=== PATIENT | male | born 1945 | race Caucasian/White ===

== ENCOUNTER → 2016-10-08 | Outpatient (CLI) | payer MEDICARE ==
--- NOTE | 2016-10-09 23:00 | SLEEPCENT ---
DATE OF PROCEDURE: 10/08/2016 REFERRING PHYSICIAN: Melinda Prasad Nocturnal polysomnography was performed due to concern for the obstructive sleep apnea syndrome. 8 hours and 4 minutes of data were reviewed. There were 325 minutes of sleep identified. Sleep latency was prolonged at 50 minutes. Rapid eye movement (REM) sleep was short at 85 minutes. Sleep architecture showed fragmentation. The progression was intact. Overall sleep efficiency 68%. The patient's EKG showed a sinus rhythm with an average heart rate of 58 beats per minute. EEG showed normal waveforms for awake and sleep. There were 197 respiratory events identified of 10 seconds in duration or greater for an apnea/hypopnea index of 36.4. The events were primarily obstructive, not exclusive to sleep stage nor body position. Arousals from respiratory events occurred 20.7 times per hour. Remaining measures of sleep physiology were normal. IMPRESSION: Severe obstructive sleep apnea syndrome (G47.33). Apnea/hypopnea index 36.4. RECOMMENDATION: The patient should be encouraged to return to the sleep service center for pressure therapy. In the interim alcohol and sedative avoidance should be practiced and caution exercised during the operation of motor vehicles.
== END ==
LOC: M SLEEP 19:38
PROVIDERS: ATTEND Nurse Practitioner Adult Health
DX: G47.33 Obstructive sleep apnea (adult) (pediatric) (principal)

== ENCOUNTER → 2016-11-03 | Outpatient (CLI) | payer MEDICARE ==
--- NOTE | 2016-11-04 12:06 | SLEEPCENT ---
DATE OF PROCEDURE: 11/03/2016 ORDERED BY: ARANZA Russell Nocturnal polysomnography was performed for the titration of pressure therapy in this patient with severe obstructive sleep apnea syndrome. Apnea hypopnea index of 36. For testing, the patient was fit with a ResMed AirFit F20 full face mask of large, 4 cm of water pressure were applied to the circuit and the lights were extinguished. 6 hours and 51 minutes of data were reviewed. There were 314 minutes of sleep identified. Sleep latency was prolonged at 33 minutes. Rapid eye movement (REM) latency was normal at 110 minutes. Sleep architecture was fair. There was some persistence of fragmentation but 3 REM periods were appreciated. Overall sleep efficiency was 77.4%. The patient's EKG showed a sinus rhythm with an average heart rate of 62 beats per minute. EEG showed reasonably normal waveforms for awake and sleep stages. Respiratory events were found best palliated with CPAP at pressure of +7. Some limb activity persisted despite pressure titration. Limb movement arousals occurred only 5.7 times per hour. IMPRESSION: Obstructive sleep apnea syndrome (G47.33). RECOMMENDATION: Nightly use of pressure therapy 7 cm of water.
== END ==
LOC: M SLEEP 19:36
PROVIDERS: ATTEND Nurse Practitioner Adult Health
DX: G47.33 Obstructive sleep apnea (adult) (pediatric) (principal)

== ENCOUNTER → 2017-03-24 | Outpatient (REF) | payer MEDICARE | LOC: M LAB REF 16:39 | PROVIDERS: ATTEND Internal Medicine | DX: Z01.89 Encounter for other specified special examinations (principal) ==

== ENCOUNTER → 2018-11-13 | Outpatient (REF) | payer MEDICARE | LOC: M LAB REF 09:17 | DX: L03.012 Cellulitis of left finger (principal) ==

== ENCOUNTER 2019-07-20 06:35 | Day surgery (SDC) | payer MEDICARE ==
[~2019-07-20] VITALS: Ht 180.3 cm; Wt 111.1 kg
[~2019-07-20 06:35] MED LIST: NS 1,000 ML IV ONE
[2019-07-20] MEDS ORDERED: LIDOCAINE 2% INJ 100 MG/5 ML SDV (FOR ANES.) As Ordered ONE (07:39)
[2019-07-20] MEDS ORDERED: propofoL 200 MG/20 ML VIAL As Ordered ONE (07:39)
--- NOTE | 2019-07-20 08:01 | ROOR ---
Patient Name: Carlos Jung Procedure Date: 07/20/2019 7:24 AM Date of : 1945 Age: 74 Room: [facility] Gender: Male Note Status: Finalized Procedure: Total Colonoscopy to Cecum + Cold Snare Polypectomy Indications: Screening for colorectal malignant neoplasm Providers: Mehrdad Kline MD Referring MD: ANTHONY HERNANDEZ JR, MD Requesting Provider: Medicines: Monitored Anesthesia Care Complications: No immediate complications. Procedure: Pre-Anesthesia Assessment: - The heart rate, respiratory rate, oxygen saturations, blood pressure, adequacy of pulmonary ventilation, and response to care were monitored throughout the procedure. The Colonoscope was introduced through the anus and advanced to the cecum, identified by appendiceal orifice and ileocecal valve. The colonoscopy was performed without difficulty. The patient tolerated the procedure well. The quality of the bowel preparation was excellent. Findings: The perianal and digital rectal examinations were normal. Non-bleeding internal hemorrhoids were found during retroflexion. The hemorrhoids were small and Grade I (internal hemorrhoids that do not prolapse). Multiple sessile polyps were found in the ascending colon and cecum. The polyps were small in size. These polyps were removed with a cold snare. Resection and retrieval were complete. The exam was otherwise without abnormality on direct and retroflexion views. Impression: - Non-bleeding internal hemorrhoids. - Multiple small polyps in the ascending colon and in the cecum, removed with a cold snare. Resected and retrieved. - The examination was otherwise normal on direct and retroflexion views. - The exam was otherwise normal to the cecum. Recommendation: - Patient has a contact number available for emergencies. The signs and symptoms of potential delayed complications were discussed with the patient. Return to normal activities tomorrow. Written discharge instructions were provided to the patient. - High fiber diet. - Discharge patient to home. - Continue present medications. - Await pathology results. - Telephone GI clinic for pathology results in 1 week. - Repeat colonoscopy for symptoms only. - Return to referring physician. - The findings and recommendations were discussed with the patient's family. Mehrdad Kline MD Mehrdad Kline MD 07/20/2019 8:01:15 AM Electronically signed by Mehrdad Kline MD Number of Addenda: 0 Note Initiated On: 07/20/2019 7:24 AM Estimated Blood Loss: Estimated blood loss: none.
[2019-07-20 08:25] VITALS: BP 144/81
== END 2019-07-20 08:32 | disposition home or self-care (01) ==
LOC: M OPP 06:35
PROVIDERS: ATTEND Internal Medicine Gastroenterology
DX: Z12.11 Encounter for screening for malignant neoplasm of colon (principal); K64.0 First degree hemorrhoids; D12.2 Benign neoplasm of ascending colon; D12.0 Benign neoplasm of cecum; G47.30 Sleep apnea, unspecified; F17.228 Nicotine dependence, chewing tobacco, with other nicotine-induced disorders

== ENCOUNTER → 2021-04-04 | Outpatient (CLI) | payer MEDICARE ==
--- NOTE | 2021-04-04 09:02 | REP ---
INDICATION: AAA SCREENING COMPARISON: None. TECHNIQUE: Real time tabor scale ultrasound examination using curved array transducer. FINDINGS: The abdominal aorta is normal by sonographic evaluation without significant atherosclerotic changes and no evidence for aneurysm. Proximal aorta: 2.3 x 2.3 cm Aorta at renal arteries: 2.0 x 2.2 cm Mid aorta: 1.9 x 1.5 cm Distal aorta: 1.9 x 1.9 cm Right common iliac artery: 1.1 x 1.3 cm Left common iliac artery: 1.2 x 1.3 cm IMPRESSION: Normal abdominal aorta. No aneurysm. <Electronically signed by Rajesh Geller > 04/04/21 [id number]
== END ==
LOC: M RAD 07:23
PROVIDERS: ATTEND Internal Medicine
DX: Z13.6 Encounter for screening for cardiovascular disorders (principal)

== ENCOUNTER → 2022-12-09 | Outpatient (REF) | payer MEDICARE | LOC: M SFHCDERM 18:19 | PROVIDERS: ATTEND Physician Assistant | DX: C44.612 Basal cell carcinoma of skin of right upper limb, including shoulder (principal) ==

== ENCOUNTER → 2023-05-04 | Outpatient (REF) | payer MEDICARE | LOC: M SFHCDERM 14:26 | PROVIDERS: ATTEND Physician Assistant | DX: L81.4 Other melanin hyperpigmentation (principal) ==

== ENCOUNTER 2023-05-21 23:21 | Emergency (ER) | payer MEDICARE ==
[~2023-05-21] VITALS: Ht 180.3 cm; Wt 125.8 kg
[2023-05-22 01:31] VITALS: BP 169/85; TEMP 98.6; O2SAT 94
== END 2023-05-22 02:51 | disposition home or self-care (01) ==
LOC: M ED 23:21
DX: S46.911A Strain of unspecified muscle, fascia and tendon at shoulder and upper arm level, right arm, initial encounter (principal); W19.XXXA Unspecified fall, initial encounter; Y92.009 Unspecified place in unspecified non-institutional (private) residence as the place of occurrence of the external cause; M19.011 Primary osteoarthritis, right shoulder

== ENCOUNTER → 2023-12-01 | Outpatient (CLI) | payer MEDICARE ==
[~2023-12-01] MED LIST changes: +ISOVUE-300 61% 100ML VIAL As Ordered ONE; +LIDOCAINE 1% MDV 20ML VIAL As Ordered ONE; -NS 1,000 ML IV ONE; +methylPREDNISolone SUSP 40MG/ML 1ML VIAL (DEPO MEDROL) As Ordered ONE
== END ==
LOC: M RAD 12:20
PROVIDERS: ATTEND Physician Assistant Surgical
DX: M16.11 Unilateral primary osteoarthritis, right hip (principal)
CPT/HCPCS: 20610; 77002; J1010; Q9967

== ENCOUNTER → 2024-03-30 | Outpatient (CLI) | payer MEDICARE, OTHER | LOC: M RAD 11:53 | PROVIDERS: ATTEND Registered Nurse | DX: R42 Dizziness and giddiness (principal) ==

== ENCOUNTER → 2025-02-06 | Outpatient (REF) | payer MEDICARE | LOC: M SFHCDERM 17:24 | PROVIDERS: ATTEND Physician Assistant | DX: C44.519 Basal cell carcinoma of skin of other part of trunk (principal) ==

== ENCOUNTER → 2025-05-03 | Outpatient (REF) | payer MEDICARE | LOC: M SFHCDERM 16:36 | PROVIDERS: ATTEND Physician Assistant | DX: T14.90XD Injury, unspecified, subsequent encounter (principal) ==